=== PATIENT | female | born 1995 | race African-American/Black ===

== ENCOUNTER → 2019-11-08 | Outpatient (CLI) | payer OTHER ==
--- NOTE | 2019-11-08 10:11 | RADIOLOGY REPORT (SQ) ---
EXAM DESCRIPTION: DUPLEX ART/NIKHIL FLOW COMPLETE IMAGES COMPLETED DATE/TIME: 11/08/2019 9:56 am REASON FOR STUDY: KAYLA, SECONDARY HTN COMPARISON: None. TECHNIQUE: Realtime and static grayscale images acquired. Selected color Doppler, velocities and spe ctral images recorded. LIMITATIONS: None. FINDINGS: RIGHT KIDNEY: RENAL ARTERY VELOCITIES: 120.3 cm/sec. Segmental artery velocity 46.8 cm/sec. RENAL VEIN: Color doppler flow present, patent. VELOCITY RATIO: 1.44. Normal waveforms. KIDNEY: Normal size. No significant pathology. LEFT KIDNEY: RENAL ARTERY VELOCITIES: 105.6 cm/sec. Segmental artery velocity 93.5 cm/sec. RENAL VEIN: Color doppler flow present, patent. VELOCITY RATIO: 1.26. Normal waveforms. KIDNEY: Normal size. No significant pathology. BLADDER: Normal. OTHER: No other significant finding. IMPRESSION: NO DOPPLER EVIDENCE OF HEMODYNAMICALLY SIGNIFICANT RENAL ARTERY STENOSIS. COMMENT: NORMAL RENAL ARTERY/AORTA VELOCITY RATIO IS LESS THAN OR EQUAL TO 3.5. TECHNICAL DOCUMENTATION: JOB ID: [id number] 2010 [employer] ([employer] All Rights Reserved Reading location - IP/workstation name: [email or web address]
== END ==
LOC: RAD 08:17
PROVIDERS: ATTEND Family Medicine
DX: I10 Essential (primary) hypertension (principal)
CPT/HCPCS: 93975